=== PATIENT | female | born 1995 | race Caucasian/White ===

== ENCOUNTER 2025-04-11 10:02 | Outpatient (CLI) | payer OTHER, SELFPAY ==
--- NOTE | ~2025-04-11 | XR_ITS ---
Lumbosacral Spine: AP and lateral views Clinical History: Pain, left sciatica Findings: The normal lordotic curve is maintained. The vertebral bodies and posterior elements are i ntact. The intervertebral disc spaces are preserved. The sacroiliac joints are normally outlined. Impression: No significant abnormality. Reviewed, dictated and finalized at [facility]. Impression: No significant abnormality.
--- OUTSIDE RECORDS SUMMARY | 2025-04-11 11:25 | XMS_ITS | Data Portability ---
Author Organization [place] [facility] [employer], Main Office Address [address] [place] [address] Care Team Providers Care Termite Helper Name Role Phone TEMI JORDAN Primary Care Provider [phone] TEMI JORDAN Referring Provider Assessment No assessment recorded. Plan of Treatment Reminders Order Date Submit Date Provider Last Modified By Organization Details Last Modified Time Details Appointments Any 15 2024 09:15A SUSANNE Colon Not available Not available Not available Follow Up 15 2024 10:00A SUSANNE Colon Not available Not available Not available Lab lipid panel, serum 2024 025 [email or web address], [address] [facility], [place], [address], 02/22/2025 08:08:03 vitamin B12 + folate, serum or blood 2024 025 [email or web address], [address] [facility], [place], [address], 02/22/2025 08:08:03 CMP, serum or plasma 2024 025 [email or web address], [address] [facility], [place], [address], 02/22/2025 08:08:03 Referral podiatris t referral - Please call patient to schedule an appointme nt. Thank you. 2024 025 [facility] Next [facility] Foot Ankle [facility], [facility], [address] [place] [address], [place], [address], 03/05/2025 15:05:08 physical therapist referral 2024 025 [email or web address] [facility], [address], [address], [place], [address], 03/22/2025 10:10:13 gynecolog ist referral - Please call patient to schedule an appointme nt. Thank you. 2023 024 [email or web address] Farhan Velasco MD, [address] [facility] [address], [address], [place], [address], 07/31/2024 08:52:25 Procedures None recorded. Surgeries None recorded. Imaging XR, lumbosacr al spine, 2 or 3 view [address] ([facility]), [address] [place], [address], 04/11/2025 11:26:09 Medication Orders doxycycli ne hyclate 100 mg tablet 2024 025 [facility], [address] [place], [address], 03/02/2025 10:45:59 cetirizin e 10 mg tablet 2024 025 [facility], [address] [place], [address], 03/02/2025 10:50:17 cholecalc iferol (vitamin D3) 1,250 mcg (50,000 unit) capsule 2024 025 [facility], [address] [place], [address], 02/14/2025 11:17:56 meloxicam 15 mg tablet 2024 025 [facility], [address] [place], [address], 02/14/2025 11:17:57 Qulipta 10 mg tablet [address] [facility], [address] [place], [address], 02/14/2025 11:06:31 Airsupra 90 mcg-80 mcg/actua tion HFA aerosol inhaler 2023 024 [facility], [address] [place], [address], 07/03/2024 11:17:57 Qulipta 10 mg tablet [address] [facility], [address] [place], [address], 02/14/2025 11:06:31 sertralin e 25 mg tablet 2023 024 [facility], [facility] [place], [address], 07/03/2024 11:17:56 Patient TargetsNo targets recorded. Patient InstructionsNo instructions recorded. Reason for Referral Community Director Referral for Gy necologic examination Please call patient to schedule an appointment. Thank you. Referring Physician: Temi [facility], Encounter Date: 07/03/2024 Physical Therapist Referral for Right side sciatica Referring Physician: Temi Jordan [facility], Encounter Date: 02/14/2025 Administrator Social Welfare Referral for Subl uxation of toe joint Please call patient to schedule an appointment. Thank you. Referring Physician: Temi Jordan [facility], Encounter Date: 03/02/2025 Results Created Date Observation Date Name Description Value Unit Range Abnormal Flag Note LastModifiedBy Organization Detail LastModifiedTime 02/15/2002/15/2025 LIPID PANEL , STAND VESNA cholesterol, total 181 mg/dL <200 normal Not Available [employer] [facility] [address], [place], [address], 02/15/2025 08:23:39 02/15/20 25 02/15/2025 LIPID PANEL , STAND VESNA HDL cholesterol 46 mg/dL > or = 50 low Not Available [address], [address], 02/15/2025 08:23:39 02/15/20 25 02/15/2025 LIPID PANEL , STAND VESNA triglyceride s 132 mg/dL <150 normal Not Available [facility] [address], [address], 02/15/2025 08:23:39 02/15/20 25 02/15/2025 LIPID PANEL , STAND VESNA LDL-choleste rol 110 mg/dL _(butch c) high Refer ence range : <100 Celina able range <100 mg/dL for prima ry preve ntion ; <70 mg/dL for patie nts with CHD or diabe tic patie nts with > or = 2 CHD risk facto rs. LDL-C is now calcu lated using the Lea mooney-Hop kins calcu petra n, which is a valid ated novel metho d provi ding maren r accur acy than the Fried tiffany equat ion in the estim ation of LDL-C . Lea mooney SS et al. KRISTI. 2013; 310(1 9): 2061- 2068 (http ://ed ucati on.Qu Akilah Vobile. com/f aq/FA Q164) Not Available [address], [address], 02/15/2025 08:23:39 02/15/20 25 02/15/2025 LIPID PANEL , STAND VESNA chol/HDLC ratio 3.9 (calc ) <5.0 normal Not Available [address], [address], 02/15/2025 08:23:39 02/15/20 25 02/15/2025 LIPID PANEL , STAND VESNA non HDL cholesterol 135 mg/dL _(butch c) <130 high For patie nts with diabe madi plus 1 major ASCVD risk facto r, treat ing to a non-H DL-C goal of <100 mg/dL (LDL- C of <70 mg/dL ) is venessa wileyo n. Not Available [address] [place], [address], 02/15/2025 08:23:39 02/15/20 25 02/15/2025 COMPR EHENS TASIA METAB OLIC PANEL glucose 85 mg/dL 65-99 normal Fasti ng refer ence inter kevin Not Available [address] [place], [address], 02/15/2025 08:23:39 02/15/20 25 02/15/2025 COMPR EHENS TASIA METAB OLIC PANEL urea nitrogen (BUN) 11 mg/dL 7-25 normal Not Available [address] [place], [address], 02/15/2025 08:23:39 02/15/20 25 02/15/2025 COMPR EHENS TASIA METAB OLIC PANEL creatinine 0.79 mg/dL 0.50-0 .96 normal Not Available [address], [address], 02/15/2025 08:23:39 02/15/20 25 02/15/2025 COMPR EHENS TASIA METAB OLIC PANEL eGFR 105 mL/mi n/1.7 3m2 > or = 60 normal Not Available [address] [place], [address], 02/15/2025 08:23:39 02/15/20 25 02/15/2025 COMPR EHENS TASIA METAB OLIC PANEL BUN/creatini ne ratio SEE NOTE: (calc ) 6-22 Not Repor pratik: BUN and Creat inine are withi n refer ence range . Not Available [address] [place], [address], 02/15/2025 08:23:39 04/23/20 25 02/15/2025 COMPR EHENS TASIA METAB OLIC PANEL sodium 136 mmol/ L 135-14 6 normal Not Available [address], [address], 02/15/2025 08:23:39 02/15/20 25 02/15/2025 COMPR EHENS TASIA METAB OLIC PANEL potassium 4.2 mmol/ L 3.5-5. 3 normal Not Available [address], [address], 02/15/2025 08:23:39 02/15/20 25 02/15/2025 COMPR EHENS TASIA METAB OLIC PANEL chloride 102 mmol/ L 98-110 normal Not Available [address], [address], 02/15/2025 08:23:39 02/15/20 25 02/15/2025 COMPR EHENS TASIA METAB OLIC PANEL carbon dioxide 28 mmol/ L 20-32 normal Not Available [address], [address], 02/15/2025 08:23:39 02/15/20 25 02/15/2025 COMPR EHENS TASIA METAB OLIC PANEL calcium 9.4 mg/dL 8.6-10 .2 normal Not Available [address], [address], 02/15/2025 08:23:39 02/15/20 25 02/15/2025 COMPR EHENS TASIA METAB OLIC PANEL protein, total 6.6 g/dL 6.1-8. 1 normal Not Available [address], [address], 02/15/2025 08:23:39 02/15/20 25 02/15/2025 COMPR EHENS TASIA METAB OLIC PANEL albumin 4.1 g/dL 3.6-5. 1 normal Not Available [address], [address], 02/15/2025 08:23:39 02/15/20 25 02/15/2025 COMPR EHENS TASIA METAB OLIC PANEL globulin 2.5 g/dL_ (calc ) 1.9-3. 7 normal Not Available [address], [address], 02/15/2025 08:23:39 02/15/20 25 02/15/2025 COMPR EHENS TASIA METAB OLIC PANEL albumin/glob ulin ratio 1.6 (calc ) 1.0-2. 5 normal Not Available [address], [address], 02/15/2025 08:23:39 02/15/20 25 02/15/2025 COMPR EHENS TASIA METAB OLIC PANEL bilirubin, total 0.3 mg/dL 0.2-1. 2 normal Not Available [address], [address], 02/15/2025 08:23:39 02/15/20 25 02/15/2025 COMPR EHENS TASIA METAB OLIC PANEL alkaline phosphatase 68 U/L 31-125 normal Not Available [address] [address] [place], [address], 02/15/2025 08:23:39 02/15/20 25 02/15/2025 COMPR EHENS TASIA METAB OLIC PANEL AST 18 U/L 10-30 normal Not Available [address], [address], 02/15/2025 08:23:39 02/15/20 25 02/15/2025 COMPR EHENS TASIA METAB OLIC PANEL ALT 8 U/L 6-29 normal Not Available [address], [address], 02/15/2025 08:23:39 02/15/20 25 02/15/2025 VITAM IN B12/F OLATE , SERUM PANEL vitamin B12 314 pg/mL 200-11 00 normal Pleas e Note: Altho ugh the refer ence range for vitam in B12 is 200-1 100 pg/mL , it has been repor pratik that betwe en 5 and 10% of patie nts with value s betwe en 200 and 400 pg/mL may exper ience neuro psych iatri c and hemat ologi c abnor malit ies due to occul t B12 defic iency ; less than 1% of patie nts with value s above 400 pg/mL will have sympt oms. Not Available [facility] [address] [place], [address], 02/15/2025 08:23:40 02/15/20 25 02/15/2025 VITAM IN B12/F OLATE , SERUM PANEL folate, serum 11.5 NG/mL normal Refer ence Range Low: <3.4 Borde rline : 3.4-5 .4 Surekha l: >5.4 Not Available [facility] [address], [place], [address], 02/15/2025 08:23:40 Result Notes None recorded. Problems Name Problem SNOMED Code Status Onset Date Resolution Date Notes Provider Name and Address Organization Details Recorded Time Dog bite of forearm 968927020 Active 2022 TOÑITO Mcgill [address], [address], [place], [address], ID90T [facility] [employer] 3 08:11:46 Bilateral carpal tunnel syndrome 5743272068003 9101 Active 2022 TOÑITO Mcgill [address], [address], [place], [address], ID90T [facility] [employer] [facility] 3 08:17:37 Pain of bilateral hands 2104050475664 9109 Active 2022 Mirlande Ba [facility], ID90T [facility] [employer] 5 10:39:36 Pain of left hand 8364179262221 03 Active 2022 Mirlande rojas, [place] [facility] 5 10:39:36 Tenosyn[employer] is of left radial styloid 2713540623776 9104 Active 2022 Mirlande rojas, [place] [facility] 5 10:39:36 Carpal tunnel syndrome of left wrist 7197771625305 02 Active 2022 Mirlande rojas, [place] [facility] 5 10:39:36 Cough 96342478 Active 2022 Mirlande rojas, [place] [facility] 5 10:39:36 Gastroesoph ageal reflux disease without esophagitis 624569821 Active 2022 Deepa Parson MD [address], [address], [place], [address], [facility] 3 14:33:42 Right upper quadrant pain 680393375 Active 2022 Deepa Parson MD [address], [address], [address], [facility] - [facility] 3 12:35:51 Epigastric pain 19510228 Active 2022 Deepa Parson MD [address], [address], [address], [facility] - [facility] 3 12:38:31 Dysmenorrhe a 710859188 Active 2022 Deepa Pasron MD [address], [address], [place], [address], [facility] - [facility] 3 12:43:00 Mastodynia of bilateral breasts 9148620242392 9109 Active 2023 Deepa Parson MD [address], [address], [place], [address], [facility] - [facility] 4 11:42:10 Increased thirst 927108294 Active 2023 Deepa Parson MD [address], [address], [place], [address], [employer] 4 10:30:51 Asthma 185640297 Active 2023 SUSANNE Patel [address], [address], [place], [address], [employer] 4 11:01:35 Anxiety 00888191 Active 2023 SUSANNE Patel [address], [address], [place], [address], [employer] 4 11:02:47 Migraine with aura 0572894 Active 2023 SUSANNE Patel [address], [address], [place], [address], [employer] 4 11:06:25 Vitamin D deficiency 72090697 Active 2024 SUSANNE Patel [address], [address], [place], [address], [employer] 5 11:13:07 Right side sciatica 0878995827169 01 Active 2024 SUSANNE Patel [address], [address], [place], [address], [employer] 5 11:13:44 Subluxation of toe joint 674110447 Active 2024 SUSANNE Patel [address], [address], [place], [address], [employer] 5 11:16:38 Subluxation of toe joint 503897243 Active 2024 SUSANNE Patel [address], [address], [place], [address], [employer] 5 11:16:43 Spasm 03442498 Active 2024 SUSANNE Patel [address], [address], [place], [address], [facility] [employer] [facility] Buzz Referrals [facility] 5 11:16:52 Serum cholesterol above reference range 941870282 Active 2024 SUSANNE Patel [address], [address], [place], [address], [facility] [employer] [facility] 5 11:17:21 Contracture of joint of right foot 2503232880297 02 Active 2024 Mirlande Ba null, [facility] [employer] [facility] 5 10:39:36 Acute bacterial sinusitis 58909476 Active 2024 SUSANNE Patel [address], [address], [place], [address], [facility] [employer] [facility] Buzz Referrals [facility] 5 10:44:48 Finding of fluid behind tympanic membrane 724383365 Active 2024 SUSANNE Patel [address], [address], [place], [address], [facility] [employer] [facility] Buzz Referrals [facility] 5 10:49:08 Acute back pain with sciatica 467869680 Active 2024 SUSANNE Patel [address], [address], [place], [address], [facility] [employer] [facility] Buzz Referrals [facility] 5 10:49:04 Notes:Medical History: Migra ine headaches Rhinitis Eosinophils 30/uL IgE 22 IU/mL AAT PiMM 158 mg% Hypertension Occupational History: development editor Problem Notes None recorded. Procedures Surgical History Date Name Laterality Status Provider Name and Address Organization Details Recorded Time 4 Cerumen Removal completed SUSANNE Patel [address], [address], [place], [address], [facility] Referrals [facility] 07/03/2024 11:17:37 3 Ortho - Cortisone Injection completed Iban Victor MD [address], [address], [place], [address], [facility] [employer] [facility] Buzz Referrals [facility] 06/01/2023 14:55:48 Imaging Results None recorded. Procedure Notes None recorded. Medical Equipment None Reported. Allergies No known drug allergies Medications Name Sig Start Date Stop Date Status Note LastModified by Organization Details LastModified Time cyclobenzap rine 10 mg tablet Take 1 tablet 3 times a day by oral route as needed for 30 days. 07/03 completed Not Available Not Available Not Available amoxicillin 500 mg capsule TAKE 1 CAPSULE BY MOUTH THREE TIMES DAILY UNTIL GONE 04/11 completed Not Available Not Available Not Available cetirizine 10 mg tablet TAKE 1 TABLET BY MOUTH ONCE DAILY DIRECTED active Not Available Not Available No t Available azithromyci n 250 mg tablet TAKE 2 TABLETS (500 MG) BY ORAL ROUTE ONCE DAILY FOR 1 DAY THEN 1 TABLET (250 MG) BY ORAL ROUTE ONCE DAILY FOR 4 DAYS 04/11 completed Not Available Not Available Not Available hydrocodone 5 mg-acetamin ophen 325 mg tablet TAKE 1 TABLET BY MOUTH EVERY 5 HOURS NEEDED FOR PAIN 04/11 completed Not Available Not Available Not Available meloxicam 15 mg tablet TAKE 1 TABLET BY MOUTH ONCE DAILY NEEDED active Not Available Not Available No t Available prednisone 20 mg tablet 3 po qday x 3 days then 2 po qday x 3 days then 1 po qday x 3 days then 1/2 tab po qday x 3 days then stop active Not Available Not Available No t Available amlodipine 5 mg tablet TAKE 1 TABLET BY MOUTH EVERY DAY 07/01 completed Not Available Not Available Not Available famotidine 20 mg tablet TAKE 1 TABLET BY MOUTH TWICE DAILY NEEDED 07/03 completed Not Available Not Available Not Available Kenalog 10 mg/mL suspension for injection in office 04/11 completed [facility]: 0003- 0494- 20 Not Available Not Available Not Available pantoprazol e 40 mg tablet,kayy yed release TAKE 1 TABLET BY MOUTH EVERY DAY 07/03 completed Not Available Not Available Not Available sertraline 25 mg tablet TAKE 1 TABLET BY MOUTH ONCE DAILY AT BEDTIME active Not Available Not Available No t Available methylpredn isolone 4 mg tablets in a dose pack FOLLOW PACKAGE DIRECTION S 04/11 completed Not Available Not Available Not Available albuterol sulfate HFA 90 mcg/actuati on aerosol inhaler INHALE 2 PUFFS BY MOUTH EVERY 4 TO 6 HOURS NEEDED 07/03 completed Not Available Not Available Not Available sertraline 50 mg tablet TAKE 1 TABLET BY MOUTH ONCE DAILY 04/11 completed Not Available Not Available Not Available doxycycline hyclate 100 mg tablet TAKE 1 TABLET BY MOUTH TWICE DAILY DIRECTED FOR 7 DAYS 04/11 completed Not Available Not Available Not Available amoxicillin 875 mg-potangelaiu m clavulanate 125 mg tablet TAKE 1 TABLET BY MOUTH EVERY 12 HOURS FOR 10 DAYS 09/09 completed Not Available Not Available Not Available amlodipine active Not Available Not Av ailable Not Available ProAir HFA 04/11 completed Not Available Not Available Not Available cholecalcif octavio (vitamin D3) 1,250 mcg (50,000 unit) capsule TAKE 1 CAPSULE BY MOUTH ONCE A WEEK active Not Available Not Available No t Available Lo Loestrin Fe 1 mg-10 mcg (24)/10 mcg (2) tablet Take 1 tablet every day by oral route. 07/03 completed Not Available Not Available Not Available ropivacaine (PF) 5 mg/mL (0.5 %) injection solution in office 04/11 completed [facility] [phone] Not Available Not Available Not Available [facility] disintegrat ing tablet Take 1 tablet every other day by oral route as needed. 07/03 completed Not Available Not Available Not Available Qulipta 10 mg tablet TAKE 1 TABLET BY MOUTH ONCE DAILY DIRECTED 04/11 completed Not Available Not Available Not Available Airsupra 90 mcg-80 mcg/actuati on HFA aerosol inhaler Inhale 2 inhalatio ns 3 times a day by inhalatio n route as needed for 30 days. 2023 active Not Available Not Available Not Avai lable Vitals Date Recorded Body height Body mass index (BMI) Body weight Body temperature Heart rate Respiratory rate Oxygen saturation Oxygen saturation in Arterial blood by Pulse oximetry Systolic blood pressure Diastolic blood pressure Provider Name and Address Organization Details Last Updated DateTime 167.64 cm 26.2 kg/m2 99081.4 1 g 97.3 [degF] 61 /min 20 /min 99 % 99 % 122 mm[Hg] 86 mm[Hg] Jacki Bryant RN [place] [facility] Buzz Referrals [facility] 5 11:08:53 Date Recorded Body height Body mass index (BMI) Body weight Body temperature Oxygen saturation Oxygen saturation in Arterial blood by Pulse oximetry Heart rate Systolic blood pressure Diastolic blood pressure Provider Name and Address Organization Details Last Updated DateTime 5 167.64 cm 26.4 kg/m2 55825.0 1 g 98.1 [degF] 96 % 96 % 63 /min 110 mm[Hg] 68 mm[Hg] Juani Warren RN [facility] Buzz Referrals [facility] 5 10:35:19 Date Recorded Body weight Body mass index (BMI) Body height Body temperature Heart rate Respiratory rate Oxygen saturation Oxygen saturation in Arterial blood by Pulse oximetry Systolic blood pressure Diastolic blood pressure Provider Name and Address Organization Details Last Updated DateTime 5 83698.8 5 g 26.5 kg/m2 167.64 cm 97.8 [degF] 86 /min 20 /min 98 % 98 % 130 mm[Hg] 82 mm[Hg] Mirlande Ba [facility] Buzz Referrals [facility] 5 10:39:35 Date Recorded Body height Body mass index (BMI) Body weight Body temperature Heart rate Respiratory rate Oxygen saturation Oxygen saturation in Arterial blood by Pulse oximetry Systolic blood pressure Diastolic blood pressure Provider Name and Address Organization Details Last Updated DateTime 4 167.64 cm 26 kg/m2 66493.4 7 g 97.2 [degF] 71 /min 20 /min 97 % 97 % 110 mm[Hg] 68 mm[Hg] Jacki Bryant RN [facility] Buzz Referrals [facility] 4 10:46:04 Date Recorded Body height Body mass index (BMI) Body weight Body temperature Heart rate Respiratory rate Oxygen saturation Oxygen saturation in Arterial blood by Pulse oximetry Systolic blood pressure Diastolic blood pressure Provider Name and Address Organization Details Last Updated DateTime 4 167.64 cm 25.9 kg/m2 37043.8 8 g 97.4 [degF] 73 /min 20 /min 99 % 99 % 114 mm[Hg] 80 mm[Hg] Jacki Bryant RN [facility] Buzz Referrals [facility] 4 11:51:22 Social History Question Answer Notes LastModified by Organizat ion Details LastModified Time Tobacco Smoking Status Never Smoker Jacki Bryant RN null, [place] [facility] 04/11/2025 10:27:32 Do You Have An Advance Directive? No Information not available 07/03/2024 If You Are , What Was Your Level Of Alcohol Consumption Prior To ? None Information not available 10/20/2023 What Is Your Level Of Caffeine Consumption? Moderate Information not available 04/11/2025 In The 14 Days Before Symptom Onset, Have You Had Close Contact With A Laboratory-confir med COVID-19 While That Case Was Ill? No Information not available 10/20/2023 In The 14 Days Before Symptom Onset, Have You Had Close Contact With A Person Who Is Under Investigation For COVID-19 While That Person Was Ill? No Information not available 10/20/2023 What Type Of Diet Are You Following? REGULAR [id number] Information not available 12/24/2022 Which Illicit Or Recreational Drugs Have You Used? [place] Information not available 10/20/2023 Do You Have An Electrostatic Air Filter? No Information not available 10/20/2023 Have There Been Any Changes To Your Family Or Social Situation? No Information no t available 07/03/2024 Are There Any Guns Present In Your Home? No Information not available 10/20/2023 Do You Have A Humidifier? No Information not available 10/20/2023 How Many Years Have You Used Illicit Or Recreational Drugs? 1 Information not available 10/20/2023 Where Do You Live? SingleLevelHouse Information not available 10/20/2023 Do You Have A Medical Power Of Proof Reader? No Information not available 07/03/2024 Do You Have Moisture Problems In Your Home? No Information not available 10/20/2023 What Was The Date Of Your Most Recent Tobacco Screening? 09/23/2022 Information not available 10/20/2023 How Many Children Do You Have? -1 Information not available 07/03/2024 Do You Have Any Pets? Yes Information not available 10/20/2023 What Is Your Relationship Status? Single Information not available 07/03/2024 Do You Use Your Seat Belt Or Car Seat Routinely? Yes Information not available 04/11/2025 Do You Have Smoke And Carbon Monoxide Detectors In Your Home? Yes Information not available 10/20/2023 Are You Passively Exposed To Smoke? Yes Information no t available 10/20/2023 Are There Any Smokers In Your House? Yes Information not available 07/03/2024 How Much Tobacco Do You Smoke? No Information not available 04/11/2025 Do You Participate In Social Media? Yes Information not available 04/11/2025 Do You Use Sunscreen Routinely? Yes Information not available 10/20/2023 Has Tobacco Cessation Counseling Been Provided? No Information not available 10/20/2023 Have You Recently Traveled Abroad? No Information not available 10/20/2023 Have You Used IV Drugs? No Information not available 10/20/2023 Do You Have Any Dietary Restrictions? No Information not available 10/20/2023 Sex: Unknown Functional Status Question Answer Note LastModified by Organizat ion Details LastModified Time Do you use any illicit or recreational drugs? No Information not available 04/11/2025 Do you or have you ever used any other forms of tobacco or nicotine? No Information not available 10/20/2023 What is your level of alcohol consumption? None Information not available 04/11/2025 Are you currently employed? Yes Information not available 07/03/2024 What is your occupation? [employer]er [employer] Information not available 07/03/2024 What is your exercise level? Heavy [id number] Information not available 12/24/2022 Mental Status Question Answer Note LastModified by Organization D etails LastModified Time Do you feel stressed (tense, restless, nervous, or anxious, or unable to sleep at night)? [id number] Information not available 04/11/2025 Family History Relationship Description Onset Age of this Age Resolved Age Notes LastModified by Organization Details LastModified Time Mother Diabetes mellitus [id number] Not available 12/24/2022 01:23:14 Father Myocardial infarction [id number] Not available 12/24/2022 01:23:14 Maternal Grandmother Malignant tumor of breast [email or web address] Not available 2023 11:42:41 Sister Asthma [id number] Not available 12/24/2022 01:23:15 Father Family history of malignant neoplasm [email or web address] Not available 04/11 10:39:35 Father Family history of stroke [email or web address] Not available 04/11 10:39:35 Mother Hypertensive disorder [email or web address] Not available 04/11 10:39:35 Medical History Condition Response ARTHRITIS Y Gynecological History Statement/Question Response Flow Heavy Date of LMP 02/06/2025 STIs/STDs N Do your menstrual headaches get severe Y Duration of Flow (days) 6 Current Control Method BCPs Age at Menarche 16 Breast Problems no Frequency of Cycle (Q days) 30 Sexually Active? N Do you get headaches during your period Y Menses Monthly Y Date of Last Pap Smear Discharge no Obstetrics History GPAL:G 0 P 0 0 0 0 Immunizations Vaccine Type Date Status Note Provider Nam e and Address Organization Details Recorded Time COVID-19, mRNA, LNP-S, PF, 100 mcg/0.5mL dose or 50 mcg/0.25mL dose 06/09/2021 completed LINUS Molina, [facility] 10/14/2023 08:50:41 COVID-19, mRNA, LNP-S, PF, 100 mcg/0.5mL dose or 50 mcg/0.25mL dose 07/08/2021 completed Jodi Dodson LPN null, [facility] 10/14/2023 08:50:41 Tdap 02/13/2023 completed Jodi Dodson LPN null, [facility] 10/14/2023 08:50:41 Influenza, split virus, quadrivalent, PF 10/20/2023 completed Luisa Herman CMA null, [facility] 10/20/2023 13:26:27 Influenza, split virus, quadrivalent, PF 10/20/2023 completed Luisa Herman CMA null, [facility] 10/20/2023 13:08:49 Influenza, split virus, trivalent, PF 08/16/2024 completed Jacki Bryant RN null, [facility] 08/16/2024 12:34:41 Past Encounters Encounter ID Performer Location Encounter Start Date Encounter Closed Date Diagnosis/Indication Diagnosis SNOMED-CT Code Diagnosis ICD10 Code Diagnosis Note [id number] TOÑITO Mcgill [facility] Primary [address] [place] [address] 07/01/2022 00:00:00 07/01/2022 12:10:33 [id number] [facility] [address] [address] 07/29/2022 00:00:00 07/29/2022 11:27:20 [id number] Eleazar Vang MD [facility] [address] [address] 09/23/2022 00:00:00 09/23/2022 11:35:28 [id number] [facility] [address] [address] 11/02/2022 00:00:00 11/02/2022 10:35:38 [id number] TOÑITO Mcgill [address] [address] 02/17/2023 08:01:20 02/17/2023 08:21:16 Dog bite of forearm 477062620 S51.852A Occurred 5 days ago. Healing well. Advised to continue abx. OTC pain relievers as needed.Adv ised soreness should improve over time. She has good motion of arm and intact sensation. Bilateral carpal tunnel syndrome [id number] 8544116 G56.03 Left side > right side.She does wear the splints at night time and will do home stretches. Would like referral to surgeon to proceed with further evaluation . [id number] Franc Loyd MD [facility] [place] [address] [place] [address] 03/09/2023 09:41:41 03/09/2023 10:49:01 Pain of bilateral hands 4725860192 0685125 M79.641 M79.642 Pain of left hand 580839 4968 62125 M79.642 Tenosynovi tis of left radial styloid 4108960582 4150122 M65.4 [id number] Franc Loyd MD [facility] [place] [address] [place] [address] 04/20/2023 11:35:17 04/20/2023 12:02:12 Pain of bilateral hands [id number] 8004928 M79.641 M79.642 [id number] Iban Victor MD [facility] [place] [address] [place] [address] 06/01/2023 14:33:43 06/01/2023 15:14:58 Pain of bilateral hands 7140101070 5722666 M79.641 M79.642 Tenosynovi tis of left radial styloid 5282921011 4248667 M65.4 Carpal vida tito syndrome of left wrist 0549703253 46976 G56.02 [id number] Deepa Parson MD [facility] [place] [address] [place] [address] 09/09/2023 14:09:05 09/09/2023 17:29:39 Gastroesophageal reflux disease without esophagitis 128954354 K21.9 Avoid greasy/spi cy/acidic foodEat small, frequent mealsCall if any worsening symptoms including increased pain or blood in stools or if symptoms do not resolve in 14 dayspantop razole 40 mg dailyf/u in 4 weeks Administra tion of influenza vaccine 00310143 Z23 [id number] Deepa Parson MD [facility] Primary [facility] [place] [address] [place] [address] 10/20/2023 12:00:49 10/20/2023 13:22:05 Epigastric pain 10744416 R10.13 no improvemen t with pantoprazo le 40 mg dailyconti nue PPI dailyadd famotidine 20 mg bidRUQ US orderedGI referral to discuss egdcheck labsf/u in 4 weeks Administra tion of influenza vaccine 47369407 Z23 Dysmenorrhea 381589791 N 94.6 check labs [id number] Deepa Parson MD [facility] Primary Care [facility] [address] [place] [address] 12/29/2023 10:01:22 12/29/2023 10:54:48 Dysmenorrhea 807394671 N94.6 check labs Gastroesop hageal reflux disease without esophagitis 101613860 K21.9 Avoid greasy/spi cy/acidic foodEat small, frequent mealsCall if any worsening symptoms including increased pain or blood in stools or if symptoms do not resolve in 14 dayspantop razole 40 mg dailyf/u in 4 weeks 12/29/23: no improvemen t, GI referral given Mastodynia of bilateral breasts 6358157209 8208731 N64.4 Increased thirst 1181697 03 R63.1 [id number] Erlin Serrano MD [address] [address] 07/03/2024 10:30:21 07/03/2024 11:48:35 Gynecologic examination 92298284 Z01.419 Asthma 141455629 J45.90 9 Anxiety 07028346 F41.9 Would like Jury Duty excuse note. (fax [id number]) Migraine with aura 20664 06 G43.232 [id number] Erlin Serrano MD [address] [address] 08/16/2024 11:40:21 08/16/2024 12:21:14 Migraine with aura 0647043 G43.109 Administra tion of influenza vaccine 12374210 Z23 [id number] SUSANNE Patel [address] [address] 02/14/2025 11:01:46 02/14/2025 11:21:04 Vitamin D deficiency 34973596 E55.9 Last Vit D was 9, advised to take weekly and 2,000 u daily Right side sciatica 3202 167835 18090 M54.31 Pain with activity, was doing PT but lost insurance Subluxatio n of toe joint 775890293 S93.103A Pain, flexion state Spasm 06099639 R25.2 In feet/toes Serum chol esterol above reference range 614028721 E78.00 In one lab, will recheck fasting [id number] SUSANNE Patel [address] [address] 03/02/2025 10:04:22 03/05/2025 08:12:32 Acute bacterial sinusitis 55974820 J01.90 B96.89 Advised pt to avoid taking if possible, if symptoms persist past Wednesday she can begin taking. Pt expresses understand ing Subluxatio n of toe joint 719270621 S93.103A Pain, flexion state Finding of fluid behind tympanic membrane 078255323 H65.90 Mild pain [id number] Erlin Serrano MD [address] [address] 04/11/2025 10:02:53 04/11/2025 11:26:09 Acute back pain with sciatica 666837063 M54.42 Pain chronic, has completed PT x 6 weeks, this made the pain worse Health Concerns Section Related Observation LastModified by Organization Detai ls LastModified Time None Recorded Concern Status LastModified by Organization Details LastModified Time None Recorded Advance Directives Directive N: Payers Insurance Date Sequence Insurance Name Policy Number Policy Wilkinson Covered Member ID Wilkinson Member ID Guarantor Name 04/11/2025 1 [facility] (MEDICAID REPLACEMENT - HMO) [id number] Rosemary Bangura [id number] Rosemary Bangura 04/11/2025 1 [facility] (MEDICAID REPLACEMENT - HMO) [id number] Rosemary Bnagura [id number] Rosemary Samlls [place] 04/11/2025 1 [facility] Rosemary Smalls [place] [id number] Rosemary Smalls [place] 04/11/2025 1 [facility] [id number] Rosemary [place] [id number] Rosemary Smalls [place] 04/11/2025 1 [facility] [id number] Rosemary [place] [id number] Rosemary Smalls [place]rinau Notes Date Note Type Note Provider Name and Address Organization Details Recorded Time 07/03/2024 text/html Taj Greenberg i s a 29 year old female patient here today to establish care. Her past medical history is significant for asthma. Currently taking albuterol PRN. Admits to needing this _ History of acid reflux. She states she has severe anxiety. She would like a release from jury duty (fax [phone]). She would like to start anti-anxiety medications. She took sertraline 50 mg She would like a referral to see a motor generator set operator. She does have cramping with period and will vomit during menses. She has daily migraines. She states that they occur when she wake up in the morning. Flu shot: recommended for OVID vaccines: x2Tdap: 02/13/2023Mammogra m: first degree relative diagnosed at 40, will start between 30-35Colonoscopy: not indicated SUSANNE Patel [address], [facility] [address], [place], [address], [employer] 07/03/2024 11:22:17 08/16/2024 text/html Taj is here for a 6 week FU Doing well on sertraline 25mg. States her anxiety is well controlled and she is feeling much happier since her last judith She has a history of daily migraine, she started Qulipta on 07/10/24 and has had 1 migraine since starting this. She is able to manage migraines with tylenol Flu shot given today SUSANNE Patel [address], [address], [place], [address], [employer] 08/16/2024 12:02:55 02/14/2025 text/html Taj Bangura is a 29 year old female patient here today to FU on labs She had labs at her [facility] a few weeks ago and her vitamin D was low and LDH was elevated. Concerns with her right great toe, nearly contracted in a flexon position, can move with pain. Has been present x 1 month SUSANNE Patel [address], [address], [place], [address], [employer] 02/14/2025 11:21:40 03/02/2025 text/html Taj Bangura is a 29 year old female patient here today for a sick concerns She has concerns with sinus congestion, watery eyes, sore throat, and left sided lymphadenopathy. She has been sick for 7 days and is not improvement. SUSANNE Patel [address], [address], [place], [address], [employer] 03/02/2025 10:55:13 04/11/2025 text/html Taj Bangura is a 29 year old female patient here today for back pain History of right sided sciatica, has completed 6 weeks of PT and did not notice improvement, her physical therapist believes she has damage to her L4-L5, recommended imaging. SUSANNE Patel [address], [address], [place], [address], [employer] 04/11/2025 10:49:36 OBGyn Episode No OBEpisode recorded.
== END 2025-04-11 10:03 | disposition home or self-care (01) ==
DX: M54.42 Lumbago with sciatica, left side (principal)
CPT/HCPCS: 72100

== ENCOUNTER 2025-05-22 08:14 | Outpatient (CLI) | payer OTHER, SELFPAY ==
--- NOTE | ~2025-05-22 | MR_ITS ---
MRI of the lumbar spine Clinical History: Back pain Technique: Axial T2-weighted images, and sagittal T1-weighted, T2-weighted, and T2 fat-sat images wer e acquired. Findings: There is no fracture or subluxation of the lumbar spine. Vertebral bodies maintain normal h eight and alignment. No bone marrow signal abnormality seen. No disc bulge or herniation seen at any lumbar level. Intervertebral discs maintain normal signal and position. No spinal canal stenosis or neural foraminal narrowing seen. Paravertebral soft tissues are unremarkable. Impression: Unremarkable exam. Reviewed, dictated and finalized at location M. Impression: Unremarkable exam.
== END 2025-05-22 08:15 | disposition home or self-care (01) ==
LOC: GOSHIMG 08:15
DX: M54.42 Lumbago with sciatica, left side (principal)
CPT/HCPCS: 72148

== ENCOUNTER 2025-07-10 09:33 | Emergency (ER) | payer OTHER, SELFPAY ==
--- NOTE | ~2025-07-10 | XR_ITS ---
EXAMINATION: XR hip LT min 2V DATE: 07/10/2025 10:25 INDICATION: Left hip pain post fall TECHNIQUE: Anteroposterior and frog-leg lateral views of the left hip were obtained. COMPARISON: None. FINDINGS: Alignment is normal. No fracture. Joint spaces are normal. Soft tissues are unremarkable. IMPRESSION: 1. Negative left hip radiographs. Reviewed, dictated and finalized at location A.
[2025-07-10 09:44] VITALS: BP 110/67; PULSE 68; RESP 16; TEMP 36.6; O2SAT 100
--- NOTE | 2025-07-10 09:50 | ED.GENADULT ---
HPI - General Adult General Chief complaint: Extremity Injury, Lower Stated complaint: left hip injury Time Seen by Provider: 07/10/25 09:51 Source: patient, RN notes reviewed and old records reviewed Mode of arrival: ambulatory Limitations: no limitations History of Present Illness HPI narrative: 30-year-old female presents to the [facility] with left hip pain. Patient reports on Wednesday, 3 days ago and fell hitting her hip against a shoulder in unit. Has taken Advil. Has full range of motion. Large bruise noted to the left buttock Onset (ago): day(s) (3) Treatments prior to arrival: NSAID Related Data Allergies Allergy/AdvReac Type Severity Reaction Status Date / Time No Known Allergies Allergy Verified 07/10/25 10:02 Review of Systems Review of Systems: All systems reviewed & are unremarkable except as noted in HPI and below Constitutional: Constitutional: Reports no additional constitutional complaints Musculoskeletal: Musculoskeletal: Reports as per HPI and Reports arthralgias Integumentary/Breasts: Skin/Breast: Reports as per HPI PMFSH Past Medical History Medical History Migraine Anxiety Surgical History Surgical History H/O eye surgery [place] teeth removed Family History Family History Mother Hypertension Depression Diabetes mellitus Father Heart disease Sibling Depression Thyroid disorder Grandparent Breast cancer Liver cancer Social History Social History Smoking status: Never smoker Alcohol intake: never Substance use: never Comments At the time of my signature, I reviewed and agree with the nursing past medical, surgical, social, and family history. There is no relevant family history pertinent to the patient complaint. Exam Const: General: cooperative, healthy appearing, comfortable, no acute distress, well developed, alert and well nourished Nutritional Appearance: well nourished Orientation/consciousness: patient oriented x3 Limitations: no limitations HENMT: Head: normal to inspection Eyes: General: appearance normal, both eyes and all related structures Alignment and Position: alignment normal Neck: Neck: normal visual inspection, full ROM, no lymphadenopathy and no meningeal signs Chest: Chest palpation & inspection: normal inspection of the chest Resp: Effort & Inspection: normal respiratory effort and able to speak in complete sentences Cardio: Rate: regular rate Back/Spine/Pelvis: Back: no CVA tenderness and No back tenderness Skin: General skin exam: normal color and no rashes or lesions noted Neuro: General: patient oriented x3, gait normal, moves all extremities and no meningeal signs Cognition (Neuro): normal cognition Speech: normal speech Gait exam (Neuro): Normal gait present Extrem: General: normal to inspection, full ROM, capillary refill normal and normal gait Left lower extremity: full ROM and hip/thigh Details: tenderness, normal ROM and ecchymosis; no swelling Upper/lower leg/hip images:  1. Bruising noted, tenderness to palpation. Psych: Appearance: grossly normal and well kempt Mental Status: mental status grossly normal Speech and movement: Normal speech and movement present and Clear speech present Affect: normal affect Attitude: cooperative Course Course Level of Care: Express Care Visit Vital Signs Vital signs: Vital Signs Temperature 97.8 F 07/10/25 09:44 Pulse Rate 68 07/10/25 09:44 Respiratory Rate 07/10/25 09:44 Blood Pressure 110/67 07/10/25 09:44 Pulse Oximetry 100 07/10/25 09:44 Oxygen Delivery Room Air 07/10/25 09:44 Temperature 97.8 F 07/10/25 09:44 Pulse Rate 68 07/10/25 09:44 Respiratory Rate 16 07/10/25 09:44 Blood Pressure 110/67 07/10/25 09:44 Pulse Oximetry 100 07/10/25 09:44 Oxygen Delivery Room Air 07/10/25 09:44 Reviewed Medical Decision Making MDM Narrative Medical decision making narrative: Patient sitting comfortably in exam room. Patient is nontoxic, vitals stable. Patient presents post fall hitting her hip. X-ray negative for fracture. Contusion is noted. Discussed [id number]-[id number] treatments. Discharge instructions reviewed with patient, as well as provided in writing per nursing staff. The instructions also include specific and strict return/GO TO THE ER as well as f/u information. All questions have been answered, and the patient deny any further questions with discharge and discharge plan. Some parts of this dictation were generated by voice recognition software and may contain typographical and/or grammatical inaccuracies. Differential Diagnosis Differential Diagnosis: Fracture, contusion Medical Records Medical records reviewed: Yes I reviewed the external patient's medical records. Vital Signs Vital Signs: Vital Signs Temperature 97.8 F 07/10/25 09:44 Pulse Rate 68 07/10/25 09:44 Respiratory Rate 16 07/10/25 09:44 Blood Pressure 110/67 07/10/25 09:44 Pulse Oximetry 100 07/10/25 09:44 Oxygen Delivery Room Air 07/10/25 09:44 Temperature 97.8 F 07/10/25 09:44 Pulse Rate 68 07/10/25 09:44 Respiratory Rate 16 07/10/25 09:44 Blood Pressure 110/67 07/10/25 09:44 Pulse Oximetry 100 07/10/25 09:44 Oxygen Delivery Room Air 07/10/25 09:44 Reviewed Lab Data Lab results reviewed: Yes I reviewed the patient's lab results. Labs: Reviewed Imaging Data Radiologist's impression: EXAMINATION: XR hip LT min 2V DATE: 07/10/2025 10:25 INDICATION: Left hip pain post fall TECHNIQUE: Anteroposterior and frog-leg lateral views of the left hip were obtained. COMPARISON: None. FINDINGS: Alignment is normal. No fracture. Joint spaces are normal. Soft tissues are unremarkable. IMPRESSION: 1. Negative left hip radiographs. Critical Care Time Critical Care Time Critical Care Time: No Discharge Plan Discharge Clinical Impression: Contusion of hip, left Qualifiers: Encounter type: initial encounter Qualified Code(s): S70.02XA - Contusion of left hip, initial encounter Patient Disposition: Home Condition: Stable Instructions: Antibiotic Form, Contusion in Adults (ED) Additional Instructions: Your Xray did not show a fracture. Ice should be applied to help reduce swelling. It can be used for 20 to 30 minutes, every 2-3 hours while awake. Do not apply ice directly to your skin. You can alternate ibuprofen 600mg and Tylenol 650mg every 4 hours as needed for pain Please schedule a follow-up visit with your personal physician for further evaluation and treatment within 2 weeks especially if symptoms persist. For new or worsening symptoms go directly to the emergency room Patient Language: Tongan Prescriptions: No Action cholecalciferol (vitamin D3) 1,250 mcg (50,000 unit) capsule 1,250 mcg PO WEEKLY Qty: 8 0RF Follow-up/Referrals: Tod,Kimberly Ernandez, TICKET CLERK [Primary Care Provider, Unknown] - 2 Weeks Clinical Impression: Contusion of hip, left Stand Alone Forms: Work/School Release IP Time of Disposition: 10:40
== END 2025-07-10 10:47 | disposition home or self-care (01) ==
PROVIDERS: Emergency Provider Nurse Practitioner
DX: S70.02XA Contusion of left hip, initial encounter (principal); W19.XXXA Unspecified fall, initial encounter
CPT/HCPCS: 73502; 99213; G0463